=== PATIENT | male | born 1970 | race Caucasian/White ===

== ENCOUNTER 2021-12-18 08:01 | Emergency (ER) | payer OTHER ==
[~2021-12-18] VITALS: Ht 177.8 cm; Wt 80.9 kg
[2021-12-18 08:23] VITALS: BP 126/83
[2021-12-18 08:55] VITALS: BP 119/72
[2021-12-18 09:00] VITALS: BP 118/75
[2021-12-18] MEDS ORDERED: TRAMADOL HYDROC50 M1 PO (09:28)
[2021-12-18 09:48] VITALS: BP 118/75
== END 2021-12-18 09:56 | disposition home or self-care (01) | DRG 556 ==
LOC: ED 08:01
DX: M25.511 Pain in right shoulder (principal); M25.521 Pain in right elbow; M79.642 Pain in left hand; W11.XXXA Fall on and from ladder, initial encounter; Y92.009 Unspecified place in unspecified non-institutional (private) residence as the place of occurrence of the external cause

== ENCOUNTER 2022-01-09 18:34 | Emergency (ER) | payer OTHER ==
[~2022-01-09] VITALS: Ht 177.8 cm; Wt 76.5 kg
[~2022-01-09 18:34] MED LIST: TRAMADOL HYDROC50 M1 PO
[2022-01-09 18:45] VITALS: BP 126/80
[2022-01-09 19:00] VITALS: BP 116/82
[2022-01-09 19:01] LABS: GFR > 60 ML/MIN (>=60 (CALC)); GFR FOR AFR.AMER. > 60 ML/MIN (>=60 (CALC))
[2022-01-09 19:03] LABS: HEMATOCRIT 39.1 % (39.0-50.0); HEMOGLOBIN 13.4 g/dl (14.0-18.0); IMMATURE GRANULOCYTES 0.6 % (0.0-5.0); MEAN CELL VOLUME 92.2 fL CALC (80.0-100.0); MEAN CORPUSCULAR HGB 31.6 pG CALC (26.0-32.0); MEAN CORPUSCULAR HGB CONC 34.3 g/dL CAL (32.0-36.0); NEUT# 5.28 thou/uL (1.82-7.42); RED BLOOD COUNT 4.24 mill/uL (4.70-6.10); RED CELL DISTRI WIDTH 13.2 % (11.5-15.5)
[2022-01-09 19:15] VITALS: BP 131/78
[2022-01-09 19:15] LABS: ALBUMIN 4.3 g/dL (3.2-5.0); ALKALINE PHOSPHATASE 58 u/l (38-126); ANION GAP 12 (6-22 (CALC)); BILIRUBIN, TOTAL 0.3 mg/dL (0.0-1.4); BUN 24 mg/dL (9-20); BUN/CREATININE RATIO 22 (12-20 (CALC)); CARBON DIOXIDE 24 mmol/l (22-30); CHLORIDE 109 mmol/l (95-108); CREATININE 1.1 mg/dL (0.7-1.3); ETHYL ALCOHOL 0 mg/dl (0-30); GFR > 60 ML/MIN (>=60 (CALC)); GFR FOR AFR.AMER. > 60 ML/MIN (>=60 (CALC)); POTASSIUM 4.1 mmol/l (3.5-5.1); SGOT/AST 50 u/l (17-59); SODIUM 140 mmol/l (137-146); TOTAL PROTEIN 7.1 g/dL (6.3-8.2)
[2022-01-09 20:12] VITALS: BP 131/81
[2022-01-09 20:16] VITALS: BP 122/79
[2022-01-09] MEDS ORDERED: VOLTAREN75 MG PO (20:34)
[2022-01-09] MEDS ORDERED: TRAMADOL HCL50 MG PO (20:34)
[2022-01-09 20:46] VITALS: BP 122/79
== END 2022-01-09 20:46 | disposition home or self-care (01) | DRG 552 ==
LOC: ED 18:34
PROVIDERS: Family Medicine
DX: S32.039A Unspecified fracture of third lumbar vertebra, initial encounter for closed fracture (principal); S30.810A Abrasion of lower back and pelvis, initial encounter; T14.8XXA Other injury of unspecified body region, initial encounter; F17.200 Nicotine dependence, unspecified, uncomplicated; W13.8XXA Fall from, out of or through other building or structure, initial encounter; Y92.008 Other place in unspecified non-institutional (private) residence as the place of occurrence of the external cause
CPT/HCPCS: Q9967